=== PATIENT | female | born 1965 | race African-American/Black ===

== ENCOUNTER 2017-02-16 00:09 | Emergency (ER) | payer OTHER ==
[~2017-02-16] VITALS: Ht 177.8 cm; Wt 102.5 kg
[~2017-02-16 00:09] MED LIST: METR500T PO
[2017-02-16 00:36] VITALS: BP 131/87
[2017-02-16 00:52] LABS: BILIRUBIN,URINE SMALL (NEG); GLUCOSE,URINE NEGATIVE (NEG); NITRITE,URINE POSITIVE (NEG); PH,URINE 5.5; PROTEIN,URINE >=300 mg/dL (NEG-TRACE)
[2017-02-16 00:59] LABS: BACTERIA,URINE MANY /HPF (0-FEW); SQUAMOUS EPITHELIAL CELL,UR MANY /LPF; WBC,URINE TNTC /HPF (0-4)
[2017-02-16] MEDS ORDERED: traMADol 50 MG TABLET PO ONE (01:30)
[2017-02-16] MEDS ORDERED: PHEN-318 PO (01:30)
[2017-02-16] MEDS ORDERED: CEPH-264 PO (01:30)
[2017-02-16] MEDS ORDERED: CEPHALEXIN 250 MG CAPSULE. PO ONE (01:30)
[2017-02-16] MEDS ORDERED: TRAM-48 PO (01:30)
[2017-02-16] MEDS ORDERED: PHENAZOPYRIDINE 200 MG TABLET. PO ONE (01:30)
--- NOTE | 2017-02-16 01:30 | PHYS DOC ---
Past Medical History Past Medical History: Hypertension, Pneumonia, Other Additional Past Medical Histor: thrombocytopenia Past Surgical History: Hysterectomy, Other Additional Past Surgical Histo: rt shoulder surgery Alcohol Use: None Drug Use: None Adult General Chief Complaint Chief Complaint: ABDOMINAL PAIN HPI HPI Patient is a 51 year old female who presents here today complaining of dysuria frequency and urgency. Patient denies any abdominal pain. Patient has any fevers shakes chills. Patient has any flank pain. Patient has any vomiting. Patient reports she has been nauseous. Patient reports she's had one episode of loose stool today. Patient has a history of hypertension and hysterectomy in the past. Patient is not allergic to any medications. Patient's physical exam was unremarkable. Patient's abdomen was soft nontender no rebound or guarding. Patient has no psoas or obturator signs. Patient not present with any signs or symptoms of be consistent with an acute surgical abdomen. Assessment and plan Is a 50-year-old female who presents here today with sinus symptoms consistent with urinary tract infection. Patient's UA was consistent with urinary tract infection. Patient be discharged home on Keflex Pyridium and HELP her with the pain and discomfort. Review of Systems Review of Systems Constitutional: Denies fever or chills [] Eyes: Denies change in visual acuity, redness, or eye pain [] HENT: Denies nasal congestion or sore throat [] All other review systems are negative except as documented in the history of present illness portion. Current Medications Current Medications Current Medications Medications (Trade) Dose Ordered Sig/Stevie Start Time Stop Time Status Last Admin Dose Admin Cephalexin HCl (Keflex) 500 mg 1X ONCE 02/16/17 01:30 02/16/17 01:31 Phenazopyridine HCl (Pyridium) 200 mg 1X ONCE 02/16/17 01:30 02/16/17 01:31 Tramadol HCl (Ultram) 50 mg 1X ONCE 02/16/17 01:30 02/16/17 01:31 Allergies Allergies Allergies Coded Allergies Type Severity Reaction Last Updated Verified No Known Drug Allergies 07/02/14 No Physical Exam Physical Exam See above. Constitutional: Well developed, well nourished, no acute distress, non-toxic appearance. [] HENT: Normocephalic, atraumatic, bilateral external ears normal, oropharynx moist, no oral exudates, nose normal. [] Eyes: PERRLA, EOMI, conjunctiva normal, no discharge. [] Neck: Normal range of motion, no tenderness, supple, no stridor. [] Cardiovascular:Heart rate regular rhythm, no murmur [] Lungs & Thorax: Bilateral breath sounds clear to auscultation [] Abdomen: Bowel sounds normal, soft, no tenderness, no masses, no pulsatile masses. [] Skin: Warm, dry, no erythema, no rash. [] Back: No tenderness, no CVA tenderness. [] Extremities: No tenderness, no cyanosis, no clubbing, ROM intact, no edema. [] Neurologic: Alert and oriented X 3, normal motor function, normal sensory function, no focal deficits noted. [] Psychologic: Affect normal, judgement normal, mood normal. [] Current Patient Data Vital Signs Vital Signs Date Time Temp Pulse Resp B/P (MAP) Pulse Ox O2 Delivery O2 Flow Rate FiO2 02/16/17 00:36 97.8 92 20 131/87 (102) 100 Room Air 97.8 Lab Values Laboratory Tests Test 02/16/17 00:30 Urine Collection Type Unknown Urine Color Cristina Urine Clarity Turbid Urine pH 5.5 Urine Specific [place] >=1.030 Urine Protein >=300 mg/dL (NEG-TRACE) Urine Glucose (UA) Negative mg/dL (NEG) Urine Ketones (Stick) Trace mg/dL (NEG) Urine Blood Large (NEG) Urine Nitrite Positive (NEG) Urine Bilirubin Small (NEG) Urine Urobilinogen Dipstick 1.0 mg/dL (0.2 mg/dL) Urine Leukocyte Esterase Moderate (NEG) Urine RBC 11-20 /HPF (0-2) Urine WBC Tntc /HPF (0-4) Urine Squamous Epithelial Cells Many /LPF Urine Bacteria Many /HPF (0-FEW) Urine Mucus Marked /LPF EKG EKG [] Radiology/Procedures Radiology/Procedures [] Course & Med Decision Making Course & Med Decision Making Pertinent Labs and Imaging studies reviewed. (See chart for details) [] Dragon Disclaimer Dragon Disclaimer This electronic medical record was generated, in whole or in part, using a voice recognition dictation system. Departure Departure Impression: Primary Impression: UTI (urinary tract infection) Disposition: 01 HOME, SELF-CARE Condition: IMPROVED Referrals: MONTSE ELLINGTON PA-C (PCP) Patient Instructions: Urinary Tract Infection Scripts Tramadol Hcl (ULTRAM) 50 Mg Tablet 1 TAB PO Q6HRS, #14 TAB Prov: EMIGDIO HIGUERA MD 02/16/17 Phenazopyridine Hcl (PYRIDIUM) 200 Mg Tablet 200 MG PO TID, #9 TAB Prov: EMIGDIO HIGUERA MD 02/16/17 Cephalexin (KEFLEX) 500 Mg Capsule 500 MG PO QID for 10 Days, CAP Prov: EMIGDIO HIGUERA MD 02/16/17 EMIGDIO HIGUERA MD Feb 16, 2017 01:30
== END 2017-02-16 01:40 | disposition home or self-care (01) ==
LOC: ER 00:09
DX: N39.0 Urinary tract infection, site not specified (principal); I10 Essential (primary) hypertension; Z87.01 Personal history of pneumonia (recurrent); Z90.710 Acquired absence of both cervix and uterus
CPT/HCPCS: 81001; 87086; 99284

== ENCOUNTER → 2017-07-30 | Outpatient (CLI) | payer OTHER ==
[~2017-07-30] MED LIST changes: +CEPH-264 PO; +PHEN-318 PO; +TRAM-48 PO
--- NOTE | 2017-07-30 16:06 | KCIC ---
EXAM: Renal sonogram. HISTORY: Flank pain. TECHNIQUE: Sonographic imaging of the kidneys and bladder was performed. COMPARISON: None. FINDINGS: The right kidney measures 11.1 cm [id number] and the left kidney measures 10.7 cm [id number]. No solid or cystic renal lesion is seen. There is no hydronephrosis. The bladder is unremarkable. The ureteral jets are both seen. IMPRESSION: Sonographically unremarkable kidneys. Electronically signed by: Faith Chiu MD (07/30/2017 4:02 PM) [facility]
== END | disposition home or self-care (01) ==
LOC: KCIC US 14:00
PROVIDERS: ATTEND Nurse Practitioner Occupational Health
DX: R10.9 Unspecified abdominal pain (principal)
CPT/HCPCS: 76770

== ENCOUNTER → 2017-09-18 | Day surgery (SDC) | payer OTHER ==
[~2017-09-18] MED LIST changes: -CEPH-264 PO; +HYDROmorphone 2 MG/ML VIAL IV; +LIDOCAINE 1% PF 2 ML VIAL. ID; +LIDOCAINE 2% PF Vial for OR 5 ML VIAL.; -METR500T PO; +MORPHINE SULFATE 2 MG/ML DISP.SYRIN. IV; +ONDANSETRON PF 4 MG/2 ML VIAL. IV; -PHEN-318 PO; +PROCHLORPERAZINE 10 MG/2 ML VIAL. IV; +PROPOFOL 40 ML IV; -TRAM-48 PO; +fentaNYL PF VIAL 100 MCG/2 ML VIAL IV
[2017-09-18] MEDS: IV RINGERS,LACTATED 1000ML 1,000 ML IV (11:27)
== END | disposition home or self-care (01) ==
LOC: ENDOS 10:59
DX: Z12.11 Encounter for screening for malignant neoplasm of colon (principal); K64.0 First degree hemorrhoids; I10 Essential (primary) hypertension; Z90.710 Acquired absence of both cervix and uterus
CPT/HCPCS: 45378; J2704

== ENCOUNTER 2018-10-21 21:53 | Emergency (ER) | payer OTHER ==
[~2018-10-21] VITALS: Ht 177.8 cm; Wt 100.2 kg
[~2018-10-21 21:53] MED LIST changes: +AMLO5TAB10 PO; +CEPH-264 PO; +ESTR0.5T PO; -HYDROmorphone 2 MG/ML VIAL IV; -LIDOCAINE 1% PF 2 ML VIAL. ID; -LIDOCAINE 2% PF Vial for OR 5 ML VIAL.; +METR500T PO; -MORPHINE SULFATE 2 MG/ML DISP.SYRIN. IV; +OMEP20CA10 PO; -ONDANSETRON PF 4 MG/2 ML VIAL. IV; +PHEN-318 PO; -PROCHLORPERAZINE 10 MG/2 ML VIAL. IV; -PROPOFOL 40 ML IV; +TRAM-48 PO; -fentaNYL PF VIAL 100 MCG/2 ML VIAL IV
--- NOTE | 2018-10-21 23:21 | PHYS DOC ---
Past Medical History Past Medical History: Hypertension, Pneumonia, Other Additional Past Medical Histor: thrombocytopenia, DIVERTICULITIS (DRISS GUTIERREZ APRN) Past Surgical History: Hysterectomy, Other Additional Past Surgical Histo: rt shoulder surgery (DRISS GUTIERREZ APRN) Alcohol Use: None Drug Use: None (DRISS GUTIERREZ APRN) Adult General Chief Complaint Chief Complaint: ABDOMINAL PAIN HPI HPI Patient is a 53 year old female who presents with constipation for the last 3 weeks. Patient states her last bowel movement movement that was normal was 3 weeks ago. Patient states she's actually hadn't been digitally relieving herself to get stool out. Patient states she did go see her primary care doctor earlier this week and there CT scan was down. She is having nausea and vomiting and states that the pain is sharp and cramping and is generalized. Patient states when she vomits it is bile or food she's just eaten. (DRISS GUTIERREZ APRN) Review of Systems Review of Systems Constitutional: Denies fever or chills [] Eyes: Denies change in visual acuity, redness, or eye pain [] HENT: Denies nasal congestion or sore throat [] Respiratory: Denies cough or shortness of breath [] Cardiovascular: No additional information not addressed in HPI [] GI: epigastric, mid and low mid abdominal pain, nausea, vomiting, denies bloody stools or diarrhea [] : Denies dysuria or hematuria [] Musculoskeletal: Denies back pain or joint pain [] Integument: Denies rash or skin lesions [] Neurologic: Denies headache, focal weakness or sensory changes [] All other systems were reviewed and found to be within normal limits, except as documented in this note. (DRISS GUTIERREZ APRN) Current Medications Current Medications Current Medications Medications (Trade) Dose Ordered Sig/Stevie Start Time Stop Time Status Last Admin Dose Admin Famotidine (Pepcid Vial) 20 mg 1X ONCE 10/21/18 23:30 10/21/18 23:31 DC 10/21/18 23:30 20 MG Fentanyl Citrate (Fentanyl 2ml Vial) 50 mcg 1X ONCE 10/21/18 23:30 10/21/18 23:31 DC 10/21/18 23:30 50 MCG Hyoscyamine (Anaspaz) 0.125 mg 1X ONCE 10/22/18 03:00 10/22/18 03:01 DC 10/22/18 03:00 0.125 MG Info (CONTRAST GIVEN -- Rx MONITORING) 1 each PRN DAILY PRN 10/22/18 02:00 10/22/18 03:39 DC Iohexol (Omnipaque 300 Mg/ml) 75 ml 1X ONCE 10/22/18 02:00 10/22/18 02:01 DC 10/22/18 02:00 75 ML Morphine Sulfate (Morphine Sulfate) 4 mg 1X ONCE 10/22/18 01:30 10/22/18 01:31 DC 10/22/18 01:45 4 MG Ondansetron HCl (Zofran) 4 mg 1X ONCE 10/21/18 23:30 10/21/18 23:31 DC 10/21/18 23:30 4 MG Sodium Chloride 1,000 ml @ 1,000 mls/hr Q1H 10/21/18 23:30 10/22/18 00:29 DC 10/21/18 23:30 1,000 MLS/HR (PAUL MCKEE DO) Allergies Allergies Allergies Coded Allergies Type Severity Reaction Last Updated Verified No Known Drug Allergies 09/18/17 No (PAUL MCKEE DO) Physical Exam Physical Exam Constitutional: Well developed, well nourished, no acute distress, non-toxic appearance. [] HENT: Normocephalic, atraumatic, bilateral external ears normal, oropharynx moist, no oral exudates, nose normal. [] Eyes: PERRLA, EOMI, conjunctiva normal, no discharge. [] Neck: Normal range of motion, no tenderness, supple, no stridor. [] Cardiovascular:Heart rate regular rhythm, no murmur [] Lungs & Thorax: Bilateral breath sounds clear to auscultation [] Abdomen: Bowel sounds normal, soft, generalized tenderness, no masses, no pulsatile masses. [] Skin: Warm, dry, no erythema, no rash. [] Back: No tenderness, no CVA tenderness. [] Extremities: No tenderness, no cyanosis, no clubbing, ROM intact, no edema. [] Neurologic: Alert and oriented X 3, normal motor function, normal sensory function, no focal deficits noted. [] Psychologic: Affect normal, judgement normal, mood normal. [] (BAFUS,DRISS M GUM COOK) Physical Exam Constitutional: Well developed, well nourished, non-toxic appearance. [] Abdomen: Soft, mild generalized tenderness, no rebound/guarding Skin: Warm, dry, no erythema, no rash. [] Back: No tenderness, no CVA tenderness. [] Neurologic: Alert and oriented X 3, , no focal deficits noted. [] (PAUL MCKEE DO) Current Patient Data Vital Signs Vital Signs Date Time Temp Pulse Resp B/P (MAP) Pulse Ox O2 Delivery O2 Flow Rate FiO2 10/22/18 03:17 72 18 113/74 (87) 98 Room Air 10/21/18 22:01 97.7 97.7 (PAUL MCKEE DO) Lab Values Laboratory Tests Test 10/21/18 23:20 10/22/18 01:13 Urine Collection Type Unknown Urine Color Yellow Urine Clarity Cloudy Urine pH 6.0 Urine Specific [place] 1.025 Urine Protein Negative mg/dL (NEG-TRACE) Urine Glucose (UA) Negative mg/dL (NEG) Urine Ketones (Stick) Negative mg/dL (NEG) Urine Blood Trace (NEG) Urine Nitrite Negative (NEG) Urine Bilirubin Negative (NEG) Urine Urobilinogen Dipstick 1.0 mg/dL (0.2 mg/dL) Urine Leukocyte Esterase Negative (NEG) Urine RBC Occ /HPF (0-2) Urine WBC 1-4 /HPF (0-4) Urine Squamous Epithelial Cells Many /LPF Urine Bacteria Many /HPF (0-FEW) Urine Mucus Mod /LPF White Blood Count 8.1 x10^3/uL (4.0-11.0) Red Blood Count 4.48 x10^6/uL (3.50-5.40) Hemoglobin 13.8 g/dL (12.0-15.5) Hematocrit 41.5 % (36.0-47.0) Mean Corpuscular Volume 93 fL (79-100) Mean Corpuscular Hemoglobin 31 pg (25-35) Mean Corpuscular Hemoglobin Concent 33 g/dL (31-37) Red Cell Distribution Width 13.7 % (11.5-14.5) Platelet Count 156 x10^3/uL (140-400) Neutrophils (%) (Auto) 79 % (31-73) H Lymphocytes (%) (Auto) 16 % (24-48) L Monocytes (%) (Auto) 5 % (0-9) Eosinophils (%) (Auto) 1 % (0-3) Basophils (%) (Auto) 0 % (0-3) Neutrophils # (Auto) 6.3 x10^3uL (1.8-7.7) Lymphocytes # (Auto) 1.2 x10^3/uL (1.0-4.8) Monocytes # (Auto) 0.4 x10^3/uL (0.0-1.1) Eosinophils # (Auto) 0.0 x10^3/uL (0.0-0.7) Basophils # (Auto) 0.0 x10^3/uL (0.0-0.2) Sodium Level 139 mmol/L (136-145) Potassium Level 4.2 mmol/L (3.5-5.1) Chloride Level 101 mmol/L (98-107) Carbon Dioxide Level 29 mmol/L (21-32) Anion Gap 9 (6-14) Blood Urea Nitrogen 17 mg/dL (7-20) Creatinine 0.9 mg/dL (0.6-1.0) Estimated GFR (Cockcroft-Gault) 79.9 BUN/Creatinine Ratio 19 (6-20) Glucose Level 109 mg/dL (70-99) H Calcium Level 10.1 mg/dL (8.5-10.1) Total Bilirubin 0.5 mg/dL (0.2-1.0) Aspartate Amino Transferase (AST) 13 U/L (15-37) L Alanine Aminotransferase (ALT) 14 U/L (14-59) Alkaline Phosphatase 85 U/L (46-116) Troponin I Quantitative < 0.017 ng/mL (0.000-0.055) Total Protein 8.1 g/dL (6.4-8.2) Albumin 4.1 g/dL (3.4-5.0) Albumin/Globulin Ratio 1.0 (1.0-1.7) Lipase 84 U/L (73-393) Laboratory Tests 10/22/18 01:13 Laboratory Tests 10/22/18 01:13 Microbiology 10/21/18 Urine Culture - Final, Complete 10/21/18 Urine Culture Result 1 (HIGINIO) - Final, Complete (MCKEE,PAUL R DO) Lab Values Laboratory Tests Test 10/21/18 23:20 Urine Collection Type Unknown Urine Color Yellow Urine Clarity Cloudy Urine pH 6.0 Urine Specific [place] 1.025 Urine Protein Negative mg/dL (NEG-TRACE) Urine Glucose (UA) Negative mg/dL (NEG) Urine Ketones (Stick) Negative mg/dL (NEG) Urine Blood Trace (NEG) Urine Nitrite Negative (NEG) Urine Bilirubin Negative (NEG) Urine Urobilinogen Dipstick 1.0 mg/dL (0.2 mg/dL) Urine Leukocyte Esterase Negative (NEG) Urine RBC Occ /HPF (0-2) Urine WBC 1-4 /HPF (0-4) Urine Squamous Epithelial Cells Many /LPF Urine Bacteria Many /HPF (0-FEW) Urine Mucus Mod /LPF (DRISS GUTIERREZ APRN) EKG EKG Sinus Rhythm and no STEMI[] Interpretation Time: [address] Mckee (DRISS GUTIERREZ APRN) Radiology/Procedures Radiology/Procedures [] ([facility]) Radiology/Procedures PROCEDURE: CT ABD PELV W/ IV CONTRST ONLY INDICATION: abd pain, nausea, vomiting x 3 weeks; Omni 300, 75ml COMPARISON: July 2012 TECHNIQUE: Axial CT images obtained through the abdomen and pelvis with contrast. One or more of the following individualized dose reduction techniques were utilized for this examination: 1. Automated exposure control; 2. Adjustment of the mA and/or kV according to patient size; 3. Use of iterative reconstruction technique. FINDINGS: Abdominal aorta not aneurysmal. No intrahepatic bile duct dilation. Possible 1 mm calcification at the cystic duct although its possible that this is secondary to a small calcification at the lower abdomen as well. No peripancreatic fluid collection. Spleen unremarkable. No left-sided hydronephrosis. Urinary bladder is partially distended. No right-sided hydronephrosis. Prominence of the wall of a portion of the colon at left side of the abdomen but not very distended within this region. The appendix measures up to about 8 mm without definite adjacent inflammatory changes. Tapers distally. There are a few prominent loops of small bowel with fluid within measuring up to about 27 mm. IMPRESSION: 1. There are a few mildly dilated loops of small bowel within the abdomen with fluid within the lumen. This is a mild finding and could be secondary to some liquid stool within the area but causes such as early partial small bowel obstruction or enteritis not excluded. 2. The appendix is mildly dilated through a portion of its course without adjacent inflammatory changes and it tapers distally. This has a similar appearance when compared to prior therefore could be the patient's baseline appearance. 3. 1 mm calcification is seen in the upper abdomen. Difficult to tell if this is secondary to a tiny calcification within the cystic duct from causes such as tiny stone or if this is a small high density object within the adjacent duodenum. Electronically signed by: Fito Sorto MD (10/22/2018 2:33 AM) [facility] (PAUL MCKEE DO) Course & Med Decision Making Course & Med Decision Making Patient is a 53 year old female who presents with constipation for the last 3 weeks. Patient states her last bowel movement movement that was normal was 3 weeks ago. Patient states she's actually has been digitally relieving herself to get stool out. Patient states she did go see her primary care doctor earlier this week and there CT scan was down. She is having nausea and vomiting and states that the pain is sharp and cramping and is generalized. Patient states when she vomits it is either bile or the food she's just eaten. Patient states that she will vomit any time of day and it is not just after eating or drinking. Alert and oriented. Skin pink warm and dry. Mucous membranes are moist. Vital signs are within normal limits. Patient has generalized abdominal tenderness with palpation. Abdomen is soft and nondistended, although the patient states she feels that her abdomen is distended. No extremity swelling. Denies chest pain, shortness of air, fever, dizziness, diarrhea, dysuria. She rates her pain a 9 out of 10. 0100: This patient is reported off to Dr Mckee. (DRISS GUTIERREZ APRN) Course & Med Decision Making Sign out reviewed for patient with report of "constipation" and nausea vomiting. CT imaging pending. Labs reviewed. Patient seen and evaluated by myself. Abdomen non-peritoneal. CT without acute process. Rx for constipation provided. Patient stable for discharge with outpatient follow-up with PCP. Discussed findings and plan with patient and family, who acknowledge understanding and agreement. (PAUL MCKEE DO) Dragon Disclaimer Dragon Disclaimer This electronic medical record was generated, in whole or in part, using a voice recognition dictation system. (DRISS GUTIERREZ APRN) Departure Departure Impression: Primary Impression: Abdominal pain Additional Impressions: Nausea & vomiting Constipation Disposition: 01 HOME, SELF-CARE Condition: STABLE Referrals: JOSÉ MIGUEL VERDIN APRN (PCP) LAMBERT NORTH MD Patient Instructions: Abdominal Pain (Nonspecific), Constipation, Adult, Easy- to-Read, Nausea and Vomiting, [id number] Scripts Sennosides/Docusate Sodium (Colace 2-in-1 Tablet) 1 Each Tablet 1 EACH PO HS PRN for CONSTIPATION, #30 TAB Prov: PAUL MCKEE DO 10/22/18 Peg 3350/Na Sulf,Bicarb,Cl/Kcl (GOLYTELY SOLUTION) 4,000 Ml Soln.recon 4000 ML PO 1X, #1 MISC Prov: PAUL MCKEE DO 10/22/18 Hyoscyamine Sulfate (LEVSIN-SL) 0.125 Mg Tab.subl 1-2 TAB SL PRN Q4HRS PRN for PAIN, #20 TAB 0 Refills Prov: PAUL MCKEE DO 10/22/18 Ondansetron (ONDANSETRON ODT) 4 Mg Tab.rapdis 1 TAB PO PRN Q6-8HRS PRN for NAUSEA, #16 TAB Prov: PAUL MCKEE DO 10/22/18 Attending Signature Attending Signature I have personally interviewed and examined the patient. All charts, labs, and imaging studies were reviewed. I agree with the PA/CYTOTECHNOLOGIST's findings, exam, and plan. (PAUL MCKEE DO) Problem Qualifiers Primary Impression: Abdominal pain Abdominal location: generalized Qualified Codes: R10.84 - Generalized abdominal pain Additional Impressions: Nausea & vomiting Vomiting type: unspecified Vomiting Intractability: non-intractable Qualified Codes: R11.2 - Nausea with vomiting, unspecified Constipation Constipation type: unspecified constipation type Qualified Codes: K59.00 - Constipation, unspecified DRISS GUTIERREZ APRN Oct 21, 2018 23:21 PAUL MCKEE DO Oct 22, 2018 02:42
[2018-10-21] MEDS ORDERED: FAMOTIDINE 20 MG/2 ML VIAL IVP ONE (23:30)
[2018-10-21] MEDS ORDERED: IV NORMAL SALINE 1000ML BAG 1,000 ML IV SCH (23:30)
[2018-10-21] MEDS ORDERED: ONDANSETRON PF 4 MG/2 ML VIAL. IV ONE (23:30)
[2018-10-21] MEDS ORDERED: fentaNYL PF VIAL 100 MCG/2 ML VIAL IV ONE (23:30)
[2018-10-21 23:42] LABS: BILIRUBIN,URINE NEGATIVE (NEG); CLARITY,URINE CLOUDY; COLOR,URINE YELLOW; NITRITE,URINE NEGATIVE (NEG); PROTEIN,URINE NEGATIVE (NEG-TRACE)
[2018-10-21 23:46] LABS: BACTERIA,URINE MANY /HPF (0-FEW); RBC,URINE OCC /HPF (0-2)
[2018-10-21 23:47] LABS: SQUAMOUS EPITHELIAL CELL,UR MANY /LPF
[2018-10-22 01:24] LABS: BASO % 0 % (0-3); EOS % 1 % (0-3); HEMATOCRIT 41.5 % (36.0-47.0); HEMOGLOBIN 13.8 g/dL (12.0-15.5); LYMPH # 1.2 x10^3/uL (1.0-4.8); LYMPH % 16 % (24-48); MEAN CORPUSCULAR HEMOGLOBIN 31 pg (25-35); MEAN CORPUSCULAR HGB CONC 33 g/dL (31-37); MEAN CORPUSCULAR VOLUME 93 fL (79-100); MONO # 0.4 x10^3/uL (0.0-1.1); MONO % 5 % (0-9); NEUT # 6.3 x10^3uL (1.8-7.7); NEUT % 79 % (31-73); PLATELET COUNT 156 x10^3/uL (140-400); RED BLOOD COUNT 4.48 x10^6/uL (3.50-5.40); RED CELL DISTRIBUTION WIDTH 13.7 % (11.5-14.5); WHITE BLOOD COUNT 8.1 x10^3/uL (4.0-11.0)
[2018-10-22] MEDS ORDERED: MORPHINE SULFATE 4 MG/ML VIAL. IV ONE (01:30)
[2018-10-22 01:31] LABS: CALCIUM 10.1 mg/dL (8.5-10.1); CREATININE 0.9 mg/dL (0.6-1.0); GFR 79.9; POTASSIUM 4.2 mmol/L (3.5-5.1)
[2018-10-22 01:37] LABS: ALBUMIN 4.1 g/dL (3.4-5.0); TOTAL BILIRUBIN 0.5 mg/dL (0.2-1.0); TOTAL PROTEIN 8.1 g/dL (6.4-8.2)
[2018-10-22] MEDS ORDERED: IOHEXOL 300 MG/ML 100ML VIAL. IV ONE (02:00)
[2018-10-22] MEDS ORDERED: CONTRAST GIVEN. MC PRN (02:00)
--- NOTE | 2018-10-22 02:36 | RAD ---
INDICATION: abd pain, nausea, vomiting x 3 weeks; Omni 300, 75ml COMPARISON: July 2012 TECHNIQUE: Axial CT images obtained through the abdomen and pelvis with contrast. One or more of the following individualized dose reduction techniques were utilized for this examination: 1. Automated exposure control; 2. Adjustment of the mA and/or kV according to patient size; 3. Use of iterative reconstruction technique. FINDINGS: Abdominal aorta not aneurysmal. No intrahepatic bile duct dilation. Possible 1 mm calcification at the cystic duct although its possible that this is secondary to a small calcification at the lower abdomen as well. No peripancreatic fluid collection. Spleen unremarkable. No left-sided hydronephrosis. Urinary bladder is partially distended. No right-sided hydronephrosis. Prominence of the wall of a portion of the colon at left side of the abdomen but not very distended within this region. The appendix measures up to about 8 mm without definite adjacent inflammatory changes. Tapers distally. There are a few prominent loops of small bowel with fluid within measuring up to about 27 mm. IMPRESSION: 1. There are a few mildly dilated loops of small bowel within the abdomen with fluid within the lumen. This is a mild finding and could be secondary to some liquid stool within the area but causes such as early partial small bowel obstruction or enteritis not excluded. 2. The appendix is mildly dilated through a portion of its course without adjacent inflammatory changes and it tapers distally. This has a similar appearance when compared to prior therefore could be the patient's baseline appearance. 3. 1 mm calcification is seen in the upper abdomen. Difficult to tell if this is secondary to a tiny calcification within the cystic duct from causes such as tiny stone or if this is a small high density object within the adjacent duodenum. Electronically signed by: Fito Sorto MD (10/22/2018 2:33 AM) [facility]
[2018-10-22] MEDS ORDERED: SENN-121 PO (02:54)
[2018-10-22] MEDS ORDERED: HYOS0.1265 SL (02:54)
[2018-10-22] MEDS ORDERED: ONDA4TAB12 PO (02:54)
[2018-10-22] MEDS ORDERED: PEG4000S8 PO (02:54)
[2018-10-22] MEDS ORDERED: HYOSCYAMINE 0.125 MG TAB.RAPDIS PO ONE (03:00)
[2018-10-22 03:17] VITALS: BP 113/74
--- NOTE | 2018-10-22 08:06 | EKG ---
[facility] [address] [place] [address] Test Date: 2018-10-22 Test Time: 00:21:44 Pat Name: GIUSEPPE MENENDEZ Department: Room: Gender: F Sample Puller: : 1965 Requested By: DRISS GUTIERREZ Order Number: [id number] Reading MD: Andrés Miller MD Measurements Intervals [place] Rate: 81 P: 29 OR: 124 QRS: 17 QRSD: 74 T: 7 QT: 352 QTc: 409 Interpretive Statements SINUS RHYTHM Electronically Signed On 11-02-2018 12:04:14 INFORMAL WAITER/WAITRESS by Andrés Miller MD
== END 2018-10-22 03:21 | disposition home or self-care (01) ==
LOC: ER 21:53
DX: K59.00 Constipation, unspecified (principal); R11.2 Nausea with vomiting, unspecified; R10.84 Generalized abdominal pain; I10 Essential (primary) hypertension; Z90.710 Acquired absence of both cervix and uterus
CPT/HCPCS: 36415; 74177; 80053; 81001; 83690; 84484; 85025; 87086; 93005; 96361; 96374; 96375; 99284; J2270; J2405; J3010; J3490; J7030; Q9967

== ENCOUNTER → 2019-08-27 | Outpatient (CLI) | payer OTHER ==
[~2019-08-27] MED LIST changes: +HYOS0.1265 SL; +OMEP-229 PO; -OMEP20CA10 PO; +ONDA4TAB12 PO; +PEG4000S8 PO; +SENN-121 PO
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
== END | disposition home or self-care (01) ==
LOC: KCIC 14:19
PROVIDERS: ATTEND Family Medicine
DX: M25.511 Pain in right shoulder (principal); M25.512 Pain in left shoulder; M70.62 Trochanteric bursitis, left hip; M25.562 Pain in left knee; V89.2XXA Person injured in unspecified motor-vehicle accident, traffic, initial encounter; Y93.89 Activity, other specified; Y92.89 Other specified places as the place of occurrence of the external cause; Y99.8 Other external cause status
CPT/HCPCS: 73000; 73030; 73502; 73562

== ENCOUNTER → 2019-11-04 | Outpatient (CLI) | payer OTHER ==
[~2019-11-04] MED LIST changes: +CONTRAST GIVEN. MC PRN; +GADOTERATE 5 MMOL/10ML VIAL. IVP ONE; +GADOTERATE 5 MMOL/10ML VIAL. ONE; +IOHEXOL 300 MG/ML 50 ML VIAL. IJ ONE; +IOHEXOL 300 MG/ML 50 ML VIAL. ONE; -OMEP-229 PO; +OMEP20CA16 PO
--- NOTE | 2019-11-04 09:25 | RAD ---
EXAM: Fluoroscopically guided left shoulder injection for MR arthrography. HISTORY: Left trochanteric bursitis.. TECHNIQUE: The risks and benefits of the procedure were discussed with the patient and written and verbal consent were obtained. A time out procedure was performed. Fluoroscopic imaging of the left shoulder was performed. The overlying skin was sterilely prepped and infiltrated with 1% lidocaine for local anesthesia. A 22-gauge spinal needle was then advanced into the joint space under fluoroscopic guidance. Intra-articular positioning positioning was confirmed with a small injection of iodinated contrast. 12 mL of 1:200 dilution gadolinium contrast with saline and iodinated contrast was injected under fluoroscopic control. Instrumentation was withdrawn and a sterile dressing placed. There were no immediate complications. The patient was transferred to the MR suite for additional imaging. Fluoroscopy time 0.6 minutes. 6 images were obtained. Refer to the MR report for additional detail. IMPRESSION: Successful fluoroscopically guided left shoulder injection for MR arthrography. Please refer to the separate MR report for additional detail. Electronically signed by: Laurent Evans MD (11/04/2019 9:22 AM) [id number]
--- NOTE | 2019-11-04 11:06 | RAD ---
MRI Cervical Spine Without Contrast History: Cervical spondylosis, radiculopathy Technique: Multiplanar, multi sequential noncontrast MR imaging was performed of the cervical spine. Comparison: None Findings: There is some motion degradation, somewhat limits accurate characterization the neural foramina. Cervical cord caliber is within normal limits without defined or expansile signal abnormality. Cervical vertebral body stature is overall maintained. There is mild reversal of the lordotic curvature centered near C4-5. There is negligible posterior subluxation of C4 relative to C5. There is moderate to severe degenerative disc disease C3-4, C5-6, C6-7, and to lesser degree at C4-5. C2-C3: Neural foramina and spinal canal are adequate. C3-C4: There is very minimal disc osteophyte complex, central canal minimally narrowed about 9 mm. There is facet degenerative change bilaterally. There is mild narrowing of the right neural foramen, left neural foramen overall adequate. C4-C5: There is minimal disc osteophyte complex superimposed on the minimally posteriorly subluxed inferior C4 vertebral body margin. There is mild indentation upon the ventral thecal sac, central canal narrowed to about 7 to 8 mm. There is facet degenerative change greater on the right. Left neural foramen is adequate, moderate narrowing of the right neural foramen. C5-C6: There is minimal disc osteophyte complex, central canal minimally narrowed about 9 to 10 mm. There is severe, right greater than left facet degenerative change. There is uncovertebral degenerative change greater on the right. There is likely [id number] narrowing of the right neural foramen, left neural foramen not significantly narrowed. C6-C7: There is negligible disc osteophyte complex. Central canal is borderline about 10 mm. There is severe facet degenerative change greater on the right. Right neural foramen is adequate. There is left uncovertebral degenerative change and possible very shallow protrusion at the anterior margin of left neural foramen, likely [id number] narrowing of the left neural foramen. C7-T1: There is bilateral facet hypertrophic change. Spinal canal is adequate. There is mild posterior narrowing of the left neural foramen, right neural foramen adequate. Impression: 1. There is spinal stenosis on the order of 7 to 8 mm at C4-5 and to lesser degree at C3-4 and C5-6, borderline narrowing at C6-7. 2. There is multilevel cervical facet degenerative change, contributes to degree of cervical neural foramina compromise. Accurate characterization of the neural foramina is somewhat limited due to motion, suspected neural foramina compromise greatest on the left at C6-7 and on the right at C4-C5 and C5-6. 3. There is multilevel cervical degenerative disc disease C3-4 through C6-7, mild spondylosis. Electronically signed by: Eric Fisher MD (11/04/2019 11:03 AM) [id number]
--- NOTE | 2019-11-04 11:12 | RAD ---
MRI arthrogram of the left shoulder HISTORY: Superior labral tear. Pain since August 01, 2019. TECHNIQUE: Routine 4 plane sequences are obtained. FINDINGS: There appear to be postsurgical changes at the acromioclavicular joint. No acute findings at the joint. Mild motion degradation on exam. No evidence of rotator cuff tear. Mild rotator cuff tendinosis. No significant subdeltoid bursal effusion or contrast accumulation. Superior labrum is small and blunted there is also a small defect at the posterior chondral labral junction. Mild chondromalacia. No acute fracture or aggressive bone destruction. Minimal cystic-type change at the humeral head. IMPRESSION: 1. Rotator cuff tendinosis without evidence of an acute tear. 2. Posterosuperior labral degeneration/degenerative tearing. Electronically signed by: Garth Adams MD (11/04/2019 11:09 AM) [id number]
== END ==
LOC: RAD 07:55
PROVIDERS: ATTEND Physician Assistant
DX: M50.31 Other cervical disc degeneration, high cervical region (principal); M48.03 Spinal stenosis, cervicothoracic region; M47.23 Other spondylosis with radiculopathy, cervicothoracic region
CPT/HCPCS: 72141; 73040; 73222; A9575; Q9967

== ENCOUNTER → 2019-11-29 | Outpatient (CLI) | payer OTHER ==
[~2019-11-29] MED LIST changes: +AMLO10TA8 PO; -CONTRAST GIVEN. MC PRN; -GADOTERATE 5 MMOL/10ML VIAL. IVP ONE; -GADOTERATE 5 MMOL/10ML VIAL. ONE; +IOHEXOL 180 MG/ML 10 ML VIAL. ONE; -IOHEXOL 300 MG/ML 50 ML VIAL. IJ ONE; -IOHEXOL 300 MG/ML 50 ML VIAL. ONE; +OMEP40CA45 PO; +methylPREDNISolone ACETATE 40 MG/ML VIAL. ONE; +methylPREDNISolone ACETATE 80 MG/ML VIAL. ONE
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
== END ==
LOC: PNCL 11:23
PROVIDERS: ATTEND Anesthesiology
DX: M50.123 Cervical disc disorder at C6-C7 level with radiculopathy (principal); I10 Essential (primary) hypertension; K21.9 Gastro-esophageal reflux disease without esophagitis; F32.9 Major depressive disorder, single episode, unspecified; Z90.710 Acquired absence of both cervix and uterus; Z90.722 Acquired absence of ovaries, bilateral
CPT/HCPCS: 62321; J1030; J1040; Q9965

== ENCOUNTER → 2019-12-13 | Outpatient (CLI) | payer OTHER ==
--- NOTE | 2019-12-13 11:44 | PAIN ---
DATE OF SERVICE: 12/13/2019 PROGRESS NOTE FOR PAIN CLINIC DIAGNOSIS: Cervical radiculopathy with cervical degenerative disk disease. HISTORY OF PRESENT ILLNESS: The patient is a 54-year-old female who returns for followup status post cervical epidural steroid injection x 1. The patient reports about 50% improvement in the neck and left upper extremity. The patient reports increased activity with greater ease and comfort, doing walking activities, work activities, household activities, and traveling with greater ease. The patient reports everything has been better, still awakens her from sleep about every 3-4 hours, but not every night. The patient reports no new motor or sensory deficits, describes the pain as cramping and stabbing in the base of the neck, left shoulder, left upper extremity, aching, sharp, dull, tight, shooting at times, on and off in intensity now, not as severe as it was. The patient rates her pain as a 7 on a scale of 10 at its worst over the past week, 3 on average, 2 at its least and is a 3 today. The patient reports no new changes, no other complaints. PHYSICAL EXAMINATION: VITAL SIGNS: The patient's blood pressure is 140/109, pulse 75, respirations 18, temperature 98.1 degrees Fahrenheit, weight is 225 pounds. GENERAL: The patient is awake, alert, oriented, appropriate, very pleasant demeanor. HEENT: Head shows normocephalic, atraumatic. Extraocular movements are intact and symmetrical. Oral cavity: Mucous membranes moist and pink. Dentition is intact. NECK: Shows anterior throat supple without palpable lymphadenopathy noted. Swallow reflex symmetrical. CHEST: Shows normal on inspection. Breath sounds are clear bilaterally. HEART: Shows S1, S2 clear. No murmurs auscultated. ABDOMEN: Soft, nontender, nondistended. No palpable organomegaly is noted. No rebound or guarding demonstrated. BACK: Shows spine grossly in the midline, normal-appearing cervical lordotic curvature and lumbar lordotic curvature. Cervical paraspinous muscle shows symmetrical on inspection, with palpation shows some mild tenderness diffusely in the inferior aspect of the cervical paraspinous musculature and superior medial trapezius, but only diffusely without significant radiation. The patient has good rotational motion of cervical spine, both laterally as well as extension and flexion without significant pain reported. EXTREMITIES: Upper extremities show deep tendon reflexes 2+ in the biceps, triceps tendons. Motor exam is approximately 4 on a scale of 5 with left transmission specialist strength, bicep and tricep flexion and 5/5 with right transmission specialist strength, bicep and tricep flexion. Peripheral pulses are 2+ radial. No peripheral edema is noted bilaterally. Options were discussed with the patient. The patient's chart was reviewed as her current medication regimen updated. Current review of systems updated today as well. We will proceed with a second in the series of cervical epidural steroid injection today with fluoroscopic guidance. Risks were again discussed including, but not limited to bleeding, infection, possibility of epidural hematoma, subsequent neurological compromise, dural puncture, headaches, spinal cord and/or nerve damage, side effects of steroid medication and poor results regarding pain control. The patient understands and wished to proceed. The patient will return to clinic in approximately 2 weeks for followup. She was counseled on return appointment, activity level and side effects to be aware of. DIAGNOSES: Cervical radiculopathy with cervical degenerative disk disease. PROCEDURE: Cervical epidural steroid injection, translaminar approach C6-C7 level using C-arm fluoroscopic guidance under sterile prep and drape using local anesthetic. MEDICATION INJECTED: A total of 120 mg Depo-Medrol plus 5 mL of preservative-free normal saline and 2 mL of contrast. CONDITION AT DISCHARGE: Stable. The patient tolerated the procedure well, had no complications. CHRISTINA SALGUERO MD DR: POONAM/swati JOB#: [id number] / [id number]
== END ==
LOC: PNCL 10:23
PROVIDERS: ATTEND Anesthesiology
DX: M50.123 Cervical disc disorder at C6-C7 level with radiculopathy (principal)
CPT/HCPCS: 62321; J1030; J1040; Q9965

== ENCOUNTER → 2020-01-05 | Outpatient (CLI) | payer OTHER ==
[~2020-01-05] MED LIST changes: -IOHEXOL 180 MG/ML 10 ML VIAL. ONE; -methylPREDNISolone ACETATE 40 MG/ML VIAL. ONE; -methylPREDNISolone ACETATE 80 MG/ML VIAL. ONE
--- NOTE | 2020-01-05 12:37 | PAIN ---
DATE OF SERVICE: 01/05/2020 PROGRESS NOTE FOR PAIN CLINIC DIAGNOSES: Cervical radiculopathy with cervical degenerative disk disease and myofascial pain. HISTORY OF PRESENT ILLNESS: The patient is a 54-year-old female who returns for followup status post cervical epidural steroid injections x 2. The patient reports only about 50% improvement overall, now down to about 20% after the last injection. The patient reports still significant pain in the base of neck and the left shoulder and upper extremity. The patient rates her pain as a 5 on a scale of 10 at its worst over the past week, 5 on average, 5 at its least and is a 5 today. The patient reports she did have physical therapy with some manual traction but would like to try some different modalities such as dry needling as well as mechanical traction and we will make those arrangements for the patient. The patient reports the pain is aching and dull, sharp at times, shooting into the left upper extremity, but mostly in the base of the neck and shoulder on the left. The patient reports no new deficits, no new bowel or bladder incontinence. Reports it is better with inactivity, does not awaken her from sleep at night. PHYSICAL EXAMINATION: VITAL SIGNS: The patient's blood pressure 143/100, pulse 73, respirations 18, temperature 98.1 degrees Fahrenheit, height is 6 feet 2 inches, weight is 229 pounds. GENERAL: The patient is awake, alert, oriented, appropriate, very pleasant demeanor. HEENT: Shows normocephalic, atraumatic. Extraocular movements are intact and symmetrical. Oral cavity: Mucous membranes moist and pink. Dentition is intact. NECK: Shows anterior throat supple without palpable lymphadenopathy noted. Swallow reflex symmetrical. CHEST: Shows normal on inspection. Breath sounds are clear bilaterally. HEART: Shows S1, S2 clear. No murmurs auscultated. ABDOMEN: Obese but soft, nontender, nondistended. BACK: Shows spine grossly in the midline, normal-appearing cervical lordotic curvature, thoracic kyphotic curvature and lumbar lordotic curvature. Cervical paraspinous muscle shows symmetrical on inspection, on palpation shows some moderate tenderness diffusely bilaterally going diffusely without significant radiation. The patient has good rotational motion of cervical spine, both laterally as well as extension and flexion without significant increase in pain in any rotational mode. EXTREMITIES: The patient's upper extremities show deep tendon reflexes 2+ in the biceps and triceps tendons. Motor exam is approximately 4 on a scale of 5 on the left and 5/5 on the right. Peripheral pulses are 2+ radial. No peripheral edema is noted. PLAN: Options were discussed with the patient. The patient's old chart was reviewed as her current medication regimen updated. Current review of systems updated today as well. We will proceed with holding any further injections per the patient's choice. We will make more request with physical therapy for mechanical traction for cervical traction for the patient. She would like to try this and we did discuss possible trigger point injections in the future as she does have some significant tenderness with myofascial component of the neck and shoulders and she would like to try physical therapy again first and we will have her follow up once this is completed. CHRISTINA SALGUERO MD DR: POONAM/swati JOB#: [id number] / [id number]
== END | disposition home or self-care (01) ==
LOC: PNCL 10:49
PROVIDERS: ATTEND Anesthesiology
DX: M50.10 Cervical disc disorder with radiculopathy, unspecified cervical region (principal); M79.18 Myalgia, other site
CPT/HCPCS: G0463

== ENCOUNTER → 2020-11-30 | Outpatient (CLI) | payer OTHER ==
[~2020-11-30] MED LIST changes: +AMLO-186 PO; +AMLO-187 PO; -AMLO10TA8 PO; -AMLO5TAB10 PO
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
== END ==
LOC: KCIC 12:56
PROVIDERS: ATTEND Family Medicine
DX: M19.012 Primary osteoarthritis, left shoulder (principal); M17.12 Unilateral primary osteoarthritis, left knee; M16.0 Bilateral primary osteoarthritis of hip; M50.323 Other cervical disc degeneration at C6-C7 level; K59.00 Constipation, unspecified; V49.50XA Passenger injured in collision with unspecified motor vehicles in traffic accident, initial encounter
CPT/HCPCS: 72040; 72110; 73030; 73501; 73562

== ENCOUNTER → 2021-05-10 | Outpatient (CLI) | payer OTHER ==
[~2021-05-10] MED LIST changes: +IOHEXOL 180 MG/ML 10 ML VIAL. ONE; -OMEP40CA45 PO; +OMEP40CA7 PO; +methylPREDNISolone ACETATE 80 MG/ML VIAL. ONE
--- NOTE | 2021-05-10 12:09 | PDOC ---
Progress Note - Pain Clinic Date of Service: DOS: DATE: 05/10/21 TIME: 12:05 Diagnosis: Dx: Cervical radiculopathy with cervical degenerative disc disease History or Present Illness: HPI: 56-year-old female complains of pain base the neck and left greater than right upper extremity. Reports pain is better increasing for about the last 2 months or so prior to that she is doing much better patient reports about 70% improvement from last year patient reports her pain is a 7 on scale 10 is worst average and least is a 7 today patient cries aching sharp shooting cramping stabbing in the base the neck and the right shoulder and arm as well as the left shoulder arm into the left arm and forearm worse with repetitive motions lifting items weightbearing reaching and reaching over her head with her left hand. Patient reports disturbing sleep battery 4 hours or so patient reports no complete loss of motor function but significant fatigability of the upper extremities bilaterally again worse on the left than the right. Patient with history of degenerative disc disease and radiculopathy previous MRI scan cervical spine of October 2019. Physical Exam: VS: Blood pressure is 131/61 pulse 88 respirations 18 temperature 90.6 F height 6 feet 2 inches weight 230 pounds PE: PHYSICAL EXAMINATION: GENERAL: The patient is awake, alert, oriented, appropriate, very pleasant in demeanor HEENT: Shows normocephalic, atraumatic. Extraocular movements are intact and symmetrical. Oral cavity: Mucous membranes moist and pink. Dentition is intact. NECK: Shows anterior throat supple without palpable lymphadenopathy noted. Swallow reflex symmetrical. CHEST: Shows normal on inspection. Breath sounds are clear bilaterally, distant no rales rhonchi wheezes auscultated. HEART: Shows S1, S2 clear. No murmurs auscultated. ABDOMEN: Soft, nontender, nondistended, obese. No palpable organomegaly is noted. BACK: Shows spine grossly in the midline. Normal-appearing cervical lordotic curvature. Cervical paraspinous muscles show symmetrical on inspection, on palpation some moderate tenderness diffusely bilaterally in the middle and lower distribution the paraspinous muscles but without significant radiation without trigger points. Patient shows good rotation motion cervical spine with lateral rotation as well as extension flexion without significant. There is slightly increased thoracic kyphosis, some minor flattening of the lumbar lordotic curvature. EXTREMITIES: Upper extremities show deep tendon reflexes 2+ in the biceps and triceps tendons. 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 Peripheral pulses are 2+ radial. No peripheral edema is noted bilaterally. Upper extremities are warm and dry to touch, equal in color and appearance. SKIN: Shows warm and dry, good turgor. No edema. No sores, rashes or bruising throughout. Procedure: Procedure: Options were discussed with the patient. Patient chart was reviewed as her current medication regimen updated current review of systems updated today as well. We will proceed with a cervical epidural steroid injection today with fluoroscopic guidance. Risks were discussed including but not limited to: Bleeding, infection, possibility of epidural hematoma and subsequent neurological compromise, dural puncture, headaches, spinal cord and/or nerve damage, side effects of steroid medication, and poor results regarding pain control. Patient understands and wished to proceed. Patient return to the clinic in approximate 2 weeks for follow-up, was counseled as return appointment, activity level, and side effects to be aware of. Medication Injected: Med Injected: Procedure cervical epidural steroid injection at the C6-7 level, using local anesthetic under sterile prep and drape using C-arm fluoroscopic guidance under local anesthesia medications injected ;120 mg Depo-Medrol +5 mL normal saline and 2 mL contrast; condition at discharge is stable patient tolerated procedure well. and had no complications Condition at Discharge: Condition at Discharge: Condition at discharge is stable, patient tolerated the procedure well and had no complications. CHRISTINA SALGUERO MD May 10, 2021 12:09
--- NOTE | 2021-05-10 12:11 | PDOC4 ---
Procedure Note: ICD 10 Code: ICD 10 Code: M54.12 M50.30 Procedure Note: Patient was consented for cervical epidural steroid injection with fluoroscopic guidance. Risks were discussed including but not limited to: Bleeding, infection, possibility of epidural hematoma and subsequent neurological compromise, dural puncture, headaches, spinal cord and/or nerve damage, side effects of steroid medication, and poor results regarding pain control. Patient understands and wished to proceed. Procedure cervical epidural steroid injection at the C6-7 level, using local anesthetic under sterile prep and drape using C-arm fluoroscopic guidance under local anesthesia medications injected ;120 mg Depo-Medrol +5 mL normal saline and 2 mL contrast; condition at discharge is stable patient tolerated procedure well. and had no complications CHRISTINA SALGUERO MD May 10, 2021 12:10
== END ==
LOC: PNCL 11:15
PROVIDERS: ATTEND Anesthesiology
DX: M50.123 Cervical disc disorder at C6-C7 level with radiculopathy (principal)
CPT/HCPCS: 62321; J1040; Q9965

== ENCOUNTER → 2021-05-24 | Outpatient (CLI) | payer OTHER ==
--- NOTE | 2021-05-24 10:16 | PDOC ---
Progress Note - Pain Clinic Date of Service: DOS: DATE: 05/24/21 TIME: 10:11 Diagnosis: Dx: Cervical radiculopathy with cervical degenerative disc disease Myofascial pain History or Present Illness: HPI: 56-year-old female returns for follow-up status post cervical epidural steroid injection x1. Patient reports about 50% improvement in the neck and left upper extremity patient reports still some pain in the base of the shoulder and to the left upper arm into the forearm but much better that was patient is increasing activity greater ease and comfort doing household activities work activities travel with greater ease as well as noticing better strength in the left arm. Patient rates her pain as a 5 on a scale of 10 is worse over the past week 5 on average for its least is a 5 today patient reports aching sharp cramping on and off in intensity. Patient reports no new deficits but significant weakness with increased use of the left upper extremity repetitive motions and especially weight lifting or weightbearing. Patient reports it awakens her from sleep about once every 5-6 hours but she is usually able to get to sleep and it usually only happens when she lays on her left arm. Patient did have elevated blood pressure on initial measurements of 172/118 and 169/113. We discussed that pain can elevate the blood pressure as well but with persistent readings this may need further investigation. Patient is taking amlodipine and we discussed the importance of managing this and patient will follow up with her primary care physician regarding the dosing to monitor her blood pressure at home as well. Physical Exam: VS: Blood pressure is 172/118 pulse 66 respirations 18 temperature 98.3 F height 6 feet 2 inches weight is 233 pounds. PE: PHYSICAL EXAMINATION: GENERAL: The patient is awake, alert, oriented, appropriate, very pleasant in demeanor HEENT: Shows normocephalic, atraumatic. Extraocular movements are intact and symmetrical. Oral cavity: Mucous membranes moist and pink. Dentition is intact. NECK: Shows anterior throat supple without palpable lymphadenopathy noted. Swallow reflex symmetrical. CHEST: Shows normal on inspection. Breath sounds are clear bilaterally, no rales or rhonchi. HEART: Shows S1, S2 clear. No murmurs auscultated. ABDOMEN: Soft, nontender, nondistended, obese. No palpable organomegaly is noted. BACK: Shows spine grossly in the midline. Normal-appearing cervical lordotic curvature. Cervical paraspinous muscles are symmetrical with inspection, p alpation some moderate tenderness diffusely in the inferior aspect of the cervical paraspinous posture on the left but not the right without specific trigger points without atrophy hypertrophy. Patient shows full rotation motion cervical spine both laterally as well as full extension full forward flexion without significant difficulty. There is slightly increased thoracic kyphosis, some minor flattening of the lumbar lordotic curvature. EXTREMITIES: Upper extremities show deep tendon reflexes 2+ in the biceps and triceps tendons. 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 Peripheral pulses are 2+ radial. No peripheral edema is noted bilaterally. Upper extremities are warm and dry to touch, equal in color and appearance. SKIN: Shows warm and dry, good turgor. No edema. No sores, rashes or bruising throughout. Procedure: Procedure: Options were discussed with the patient. Patient's old chart was reviewed as her current medication regimen updated current review of systems updated today as well. We will proceed with cervical epidural steroid injection today with fluoroscopic guidance. Risks were discussed including but not limited to: Bleeding, infection, possibility of epidural hematoma and subsequent neurological compromise, dural puncture, headaches, spinal cord and/or nerve damage, side effects of steroid medication, and poor results regarding pain control. Patient understands and wished to proceed. Patient will return to the clinic in approximately 2 weeks for follow-up, was counseled as return appointment, activity level, and side effect to be aware of. Medication Injected: Med Injected: Procedure cervical epidural steroid injection at the C6-7 level, using local anesthetic under sterile prep and drape using C-arm fluoroscopic guidance under local anesthesia medications injected ;120 mg Depo-Medrol +5 mL normal saline and 2 mL contrast; condition at discharge is stable patient tolerated procedure well. and had no complications Condition at Discharge: Condition at Discharge: Condition at discharge is stable, pain tolerated the procedure well and had no complications. Patient will follow up with primary care physician regarding hypertension and amlodipine management, as discussed. CHRISTINA SALGUERO MD May 24, 2021 10:16
--- NOTE | 2021-05-24 10:17 | PDOC4 ---
Procedure Note: ICD 10 Code: ICD 10 Code: M54.12 M50.30 Procedure Note: Patient was consented for cervical epidural steroid injection with fluoroscopic guidance. Risks were discussed including but not limited to: Bleeding, infection, possibility of epidural hematoma and subsequent neurological compromise, dural puncture, headaches, spinal cord and/or nerve damage, side effects of steroid medication, and poor results regarding pain control. Patient understands and wished to proceed. Procedure cervical epidural steroid injection at the C6-7 level, using local anesthetic under sterile prep and drape using C-arm fluoroscopic guidance under local anesthesia medications injected ;120 mg Depo-Medrol +5 mL normal saline and 2 mL contrast; condition at discharge is stable patient tolerated procedure well. and had no complications CHRISTINA SALGUERO MD May 24, 2021 10:16
== END | disposition home or self-care (01) ==
LOC: PNCL 09:42
PROVIDERS: ATTEND Anesthesiology
DX: M50.10 Cervical disc disorder with radiculopathy, unspecified cervical region (principal); M79.18 Myalgia, other site; I10 Essential (primary) hypertension; K21.9 Gastro-esophageal reflux disease without esophagitis; Z90.710 Acquired absence of both cervix and uterus; Z98.890 Other specified postprocedural states; Z79.899 Other long term (current) drug therapy
CPT/HCPCS: 62321; J1040; Q9965